=== PATIENT | male | born 1955 | race African-American/Black ===

== ENCOUNTER 2017-04-10 22:21 | Inpatient (IN) | payer MEDICARE, MEDICAID ==
[~2017-04-10] VITALS: Ht 172.7 cm; Wt 74.8 kg
[2017-04-10] MEDS ORDERED: SODIUM CHLORIDE 0.9% 500 ML IV ONE (23:29)
[2017-04-11 00:03] LABS: BASOPHILS % 0.4 % (0.0-2.0); EOSINOPHILS % 0.2 % (0.0-5.0); HEMATOCRIT. 26.1 % (42.0-52.0); HEMOGLOBIN. 8.8 g/dL (14.0-18.0); LYMPHOCYTES % 8.3 % (20.0-50.0); MEAN CORPUSCULAR HEMOGLOBIN 30.9 pg (28.0-32.0); MEAN CORPUSCULAR VOLUME 91.1 fL (80.0-94.0); MEAN PLATELET VOLUME 7.8 fl (7.4-10.4); MONOCYTES % 14.7 % (2.0-8.0); NEUTROPHILS % 76.4 % (40.0-76.0); PLATELET 121 x1000/uL (130-400); RED BLOOD CELL COUNT 2.86 mill/uL (4.7-6.1); RED CELL DISTRIBUTION WIDTH 16.1 % (11.6-14.6)
[2017-04-11 00:15] LABS: CARBON DIOXIDE 31 mEq/L (21-32); CHLORIDE 101 mEq/L (98-107)
[2017-04-11] MEDS ORDERED: CEFTRIAXONE 1 G PREMIX 50 ML IV ONE (03:00)
[2017-04-11] MEDS ORDERED: AZITHROMYCIN 500 MG in DEXT 5% WATER 250 ML IV ONE (03:00)
[2017-04-11] MEDS ORDERED: ACETAMINOPHEN 325MG TABLET PO PRN (04:30)
[2017-04-11] MEDS ORDERED: DIPHENHYDRAMINE 50MG/ML VIAL IV PRN (04:30)
[2017-04-11] MEDS ORDERED: GUAIFENESIN 200MG/10ML SUGAR FREE UDC PO PRN (04:30)
[2017-04-11] MEDS ORDERED: MAGNESIUM/ALUMINUM HYDROXIDE/SIMETHICONE 30ML UDC PO PRN (04:30)
[2017-04-11] MEDS ORDERED: CLONIDINE 0.1MG TABLET PO PRN (04:30)
[2017-04-11] MEDS ORDERED: ONDANSETRON HCL 4MG/2ML VIAL IV PRN (04:30)
[2017-04-11] MEDS ORDERED: IPRATROPIUM/ALBUTEROL 0.5-3(2.5)MG/3ML NEB INH PRN (04:30)
[2017-04-11] MEDS ORDERED: HYDROCODONE/ACETAMINOPHEN 5/325MG TABLET PO PRN (04:30)
[2017-04-11 05:17] VITALS: BP 125/79
[2017-04-11] MEDS: SODIUM CHLORIDE 0.9% INJ 3ML FLUSH IVF SCH ×3 (06:00→20:53)
[2017-04-11] MEDS ORDERED: OXYC40TA57 PO (06:08)
[2017-04-11] MEDS ORDERED: DICL50TA9 PO (06:08)
[2017-04-11] MEDS ORDERED: GABA-531 PO (06:08)
[2017-04-11] MEDS ORDERED: MINO10TA PO (06:08)
[2017-04-11] MEDS ORDERED: PRED5TAB48 PO (06:08)
[2017-04-11 08:00] VITALS: BP 117/66
[2017-04-11] MEDS: IPRATROPIUM/ALBUTEROL 0.5-3(2.5)MG/3ML NEB HHN SCH ×4 (08:30→21:33)
[2017-04-11] MEDS: GABAPENTIN 100MG CAPSULE PO SCH ×3 (08:53→17:12)
[2017-04-11] MEDS: DICLOFENAC SODIUM 50MG EC TABLET PO SCH ×2 (08:53→17:12)
[2017-04-11] MEDS: PREDNISONE 10MG TABLET PO SCH (08:54)
[2017-04-11 12:00] VITALS: BP 134/71
[2017-04-11] MEDS: DOCUSATE SODIUM SUGAR FREE 100MG/10ML UDC NG SCH (12:00)
[2017-04-11] MEDS: OXYCODONE HCL 20MG TABLET SR 12HR PO SCH ×2 (12:17→20:53)
[2017-04-11 14:21] LABS: HEMATOCRIT. 25.3 % (42.0-52.0); HEMOGLOBIN. 8.5 g/dL (14.0-18.0); MEAN CORPUSCULAR HEMOGLOBIN 31.1 pg (28.0-32.0); MEAN CORPUSCULAR VOLUME 92.3 fL (80.0-94.0); MEAN PLATELET VOLUME 8.3 fl (7.4-10.4); PLATELET 114 x1000/uL (130-400); RED BLOOD CELL COUNT 2.74 mill/uL (4.7-6.1)
[2017-04-11 15:26] LABS: PLATELET ESTIMATE DECREASED
[2017-04-11 16:00] VITALS: BP 127/63
[2017-04-11 20:00] VITALS: BP 102/50
[2017-04-11] MEDS ORDERED: OXYCODONE HCL 40 MG TABLET SR 12HR PO SCH (21:00)
[2017-04-12] VITALS: BP 118/58
[2017-04-12] MEDS: IPRATROPIUM/ALBUTEROL 0.5-3(2.5)MG/3ML NEB HHN SCH ×6 (00:12→21:30)
[2017-04-12 04:00] VITALS: BP 123/65
[2017-04-12] MEDS: SODIUM CHLORIDE 0.9% INJ 3ML FLUSH IVF SCH ×3 (05:31→21:11)
[2017-04-12 08:00] VITALS: BP 126/63
[2017-04-12 08:01] LABS: EOSINOPHILS % 0.8 % (0.0-5.0); HEMATOCRIT. 27.1 % (42.0-52.0); HEMOGLOBIN. 9.1 g/dL (14.0-18.0); MEAN CORPUSCULAR HEMOGLOBIN 31.2 pg (28.0-32.0); MEAN CORPUSCULAR VOLUME 92.4 fL (80.0-94.0); MEAN PLATELET VOLUME 8.6 fl (7.4-10.4); MONOCYTES % 12.6 % (2.0-8.0); NEUTROPHILS % 66.6 % (40.0-76.0); PLATELET 120 x1000/uL (130-400); RED BLOOD CELL COUNT 2.93 mill/uL (4.7-6.1); RED CELL DISTRIBUTION WIDTH 15.9 % (11.6-14.6)
[2017-04-12] MEDS: DOCUSATE SODIUM SUGAR FREE 100MG/10ML UDC NG SCH (08:50)
[2017-04-12] MEDS: GABAPENTIN 100MG CAPSULE PO SCH ×3 (08:50→16:58)
[2017-04-12] MEDS: DICLOFENAC SODIUM 50MG EC TABLET PO SCH ×2 (08:51→16:57)
[2017-04-12] MEDS: PREDNISONE 10MG TABLET PO SCH (08:51)
[2017-04-12] MEDS: OXYCODONE HCL 20MG TABLET SR 12HR PO SCH ×2 (08:52→21:12)
[2017-04-12 12:00] VITALS: BP 107/58
[2017-04-12] MEDS: SEVELAMER CARBONATE 800 MG TABLET PO SCH ×2 (12:54→16:58)
[2017-04-12 16:00] VITALS: BP 136/57
[2017-04-12 20:00] VITALS: BP 125/68
[2017-04-13] VITALS: BP 129/63
[2017-04-13] MEDS: IPRATROPIUM/ALBUTEROL 0.5-3(2.5)MG/3ML NEB HHN SCH ×5 (00:40→16:00)
[2017-04-13 04:00] VITALS: BP 127/68
[2017-04-13 06:19] LABS: BASOPHILS % 0.6 % (0.0-2.0); EOSINOPHILS % 1.6 % (0.0-5.0); HEMATOCRIT. 24.6 % (42.0-52.0); HEMOGLOBIN. 8.4 g/dL (14.0-18.0); LYMPHOCYTES % 21.1 % (20.0-50.0); MEAN CORPUSCULAR HEMOGLOBIN 31.3 pg (28.0-32.0); MEAN CORPUSCULAR VOLUME 91.8 fL (80.0-94.0); MEAN PLATELET VOLUME 8.7 fl (7.4-10.4); MONOCYTES % 13.5 % (2.0-8.0); NEUTROPHILS % 63.2 % (40.0-76.0); PLATELET 128 x1000/uL (130-400); RED BLOOD CELL COUNT 2.68 mill/uL (4.7-6.1); RED CELL DISTRIBUTION WIDTH 15.8 % (11.6-14.6)
[2017-04-13 08:00] VITALS: BP 161/26
[2017-04-13] MEDS: SODIUM CHLORIDE 0.9% INJ 3ML FLUSH IVF SCH ×2 (09:10→14:18)
[2017-04-13] MEDS: DOCUSATE SODIUM SUGAR FREE 100MG/10ML UDC NG SCH (09:11)
[2017-04-13] MEDS: GABAPENTIN 100MG CAPSULE PO SCH ×3 (09:11→18:06)
[2017-04-13] MEDS: DICLOFENAC SODIUM 50MG EC TABLET PO SCH ×2 (09:11→18:05)
[2017-04-13] MEDS: SEVELAMER CARBONATE 800 MG TABLET PO SCH ×3 (09:12→18:05)
[2017-04-13] MEDS: PREDNISONE 10MG TABLET PO SCH (09:12)
[2017-04-13] MEDS: OXYCODONE HCL 20MG TABLET SR 12HR PO SCH (09:12)
[2017-04-13 12:00] VITALS: BP 133/70
[2017-04-13 16:00] VITALS: BP 128/68
[2017-04-13 17:26] VITALS: BP 128/68
== END 2017-04-13 19:05 | disposition home or self-care (01) | DRG 291 ==
LOC: ER 22:41 → 8WST 04-11 02:57 → ENRESERV 04-11 03:28
PROVIDERS: ADMIT Internal Medicine; ATTEND Internal Medicine
PROC: 5A1D60Z (ICD-10-PCS; principal; 2017-04-11)
DX: I13.2 Hypertensive heart and chronic kidney disease with heart failure and with stage 5 chronic kidney disease, or end stage renal disease (principal); J18.9 Pneumonia, unspecified organism; J96.00 Acute respiratory failure, unspecified whether with hypoxia or hypercapnia; Z93.0 Tracheostomy status; E11.22 Type 2 diabetes mellitus with diabetic chronic kidney disease; G83.9 Paralytic syndrome, unspecified; N18.6 End stage renal disease; I50.43 Acute on chronic combined systolic (congestive) and diastolic (congestive) heart failure; R04.2 Hemoptysis; Z94.0 Kidney transplant status; W19.XXXA Unspecified fall, initial encounter; D64.9 Anemia, unspecified; Z96.649 Presence of unspecified artificial hip joint; G89.4 Chronic pain syndrome; M45.9 Ankylosing spondylitis of unspecified sites in spine; Y92.009 Unspecified place in unspecified non-institutional (private) residence as the place of occurrence of the external cause; Z80.0 Family history of malignant neoplasm of digestive organs; Z80.1 Family history of malignant neoplasm of trachea, bronchus and lung; Z99.2 Dependence on renal dialysis; Z88.8 Allergy status to other drugs, medicaments and biological substances
CPT/HCPCS: 36415; 70450; 71010; 80048; 80053; 83605; 84484; 85025; 87040; 93005; 93970; 94640; 94664; 96361; 96365; 96367; 99285; J0456; J0696; J7030; J7040; J7060; J7512; J7620

== ENCOUNTER 2018-10-21 20:08 | Emergency (ER) | payer MEDICARE, MEDICAID ==
[~2018-10-21] VITALS: Ht 172.7 cm; Wt 68.0 kg
[~2018-10-21 20:08] MED LIST: DICL50TA9 PO; GABA-531 PO; MINO10TA PO; OXYC40TA57 PO; PRED5TAB48 PO
[2018-10-21] MEDS ORDERED: ONDANSETRON HCL 4MG/2ML INJ IV ONE (21:45)
[2018-10-21] MEDS ORDERED: MORPHINE SULFATE 10 MG/ML CPJ IV ONE (21:45)
[2018-10-22 00:08] LABS: BASOPHILS % 1.1 % (0.0-2.0); EOSINOPHILS % 0.1 % (0.0-5.0); HEMATOCRIT. 33.6 % (42.0-52.0); HEMOGLOBIN. 10.7 g/dL (14.0-18.0); LYMPHOCYTES % 7.8 % (20.0-50.0); MEAN CORPUSCULAR VOLUME 93.6 fL (80.0-94.0); MEAN PLATELET VOLUME 8.2 fl (7.4-10.4); MONOCYTES % 9.2 % (2.0-8.0); NEUTROPHILS % 81.8 % (40.0-76.0); PLATELET 148 x1000/uL (130-400); RED BLOOD CELL COUNT 3.59 mill/uL (4.7-6.1); RED CELL DISTRIBUTION WIDTH 17.2 % (11.6-14.6)
[2018-10-22 00:12] LABS: CHLORIDE 105 mEq/L (98-107)
[2018-10-22 00:17] LABS: INR 1.2; PROTHROMBIN TIME 12.3 sec (9.1-11.1)
[2018-10-22 00:19] LABS: PHOSPHORUS 5.7 mg/dL (2.5-4.9)
[2018-10-22 01:16] VITALS: BP 138/68
== END 2018-10-22 01:46 | disposition short-term general hospital (02) ==
LOC: ER 20:08
DX: S22.029A Unspecified fracture of second thoracic vertebra, initial encounter for closed fracture (principal); S22.039A Unspecified fracture of third thoracic vertebra, initial encounter for closed fracture; S22.31XA Fracture of one rib, right side, initial encounter for closed fracture; E11.22 Type 2 diabetes mellitus with diabetic chronic kidney disease; I12.0 Hypertensive chronic kidney disease with stage 5 chronic kidney disease or end stage renal disease; N18.6 End stage renal disease; D63.1 Anemia in chronic kidney disease; Z88.4 Allergy status to anesthetic agent; Z99.2 Dependence on renal dialysis; W01.0XXA Fall on same level from slipping, tripping and stumbling without subsequent striking against object, initial encounter; Y93.89 Activity, other specified; Y92.018 Other place in single-family (private) house as the place of occurrence of the external cause
CPT/HCPCS: 36415; 71250; 72125; 72131; 80053; 83735; 84100; 85025; 85610; 85730; 93005; 96374; 96375; 99285; J2270; J2405

== ENCOUNTER 2019-04-02 13:16 | Inpatient (IN) | payer MEDICARE, MEDICAID ==
[~2019-04-02] VITALS: Ht 175.3 cm; Wt 68.0 kg
[2019-04-02 14:33] LABS: HEMATOCRIT. 35.6 % (42.0-52.0); HEMOGLOBIN. 11.1 g/dL (14.0-18.0); MEAN CORPUSCULAR HEMOGLOBIN 29.3 pg (28.0-32.0); MEAN CORPUSCULAR VOLUME 93.6 fL (80.0-94.0); MEAN PLATELET VOLUME 9.2 fl (7.4-10.4); PLATELET 111 x1000/uL (130-400); RED CELL DISTRIBUTION WIDTH 19.1 % (11.6-14.6)
[2019-04-02 14:41] LABS: CHLORIDE 102 mEq/L (98-107)
[2019-04-02 14:46] LABS: INR 1.3; PROTHROMBIN TIME 12.9 sec (9.6-11.0)
[2019-04-02 15:55] LABS: PLATELET ESTIMATE DECREASED
[2019-04-02] MEDS ORDERED: ASPIRIN 81MG TABLET PO NR (16:00)
[2019-04-02] MEDS ORDERED: HYDROCODONE/ACETAMINOPHEN 5/325MG TABLET PO PRN (22:15)
[2019-04-02] MEDS ORDERED: ACETAMINOPHEN 325MG TABLET PO PRN (22:15)
[2019-04-02] MEDS ORDERED: DOCUSATE SODIUM 100MG CAPSULE PO PRN (22:15)
[2019-04-02] MEDS ORDERED: CLONIDINE 0.1MG TABLET PO PRN (22:15)
[2019-04-02] MEDS ORDERED: ONDANSETRON HCL 4MG/2ML INJ IV PRN (22:15)
[2019-04-02] MEDS ORDERED: LORAZEPAM 0.5MG TABLET PO PRN (22:15)
[2019-04-02] MEDS ORDERED: FUROSEMIDE 40MG/4ML VIAL IVP SCH (23:00)
[2019-04-03] VITALS (7 sets, daily range): BP systolic 90–122; BP diastolic 56–86
[2019-04-03] MEDS: FUROSEMIDE 40MG/4ML VIAL IVP SCH ×2 (05:52→18:00)
[2019-04-03] MEDS: GABAPENTIN 100MG CAPSULE PO SCH ×3 (09:03→17:00)
[2019-04-03] MEDS: PREDNISONE 5MG TABLET PO SCH ×2 (10:34→17:00)
[2019-04-03] MEDS: AMIODARONE HCL 200 MG TABLET PO SCH ×2 (10:34→21:42)
[2019-04-03 10:39] LABS: HEMATOCRIT. 33.8 % (42.0-52.0); HEMOGLOBIN. 10.5 g/dL (14.0-18.0); MEAN CORPUSCULAR HEMOGLOBIN 29.1 pg (28.0-32.0); MEAN CORPUSCULAR VOLUME 93.6 fL (80.0-94.0); MEAN PLATELET VOLUME 8.9 fl (7.4-10.4); PLATELET 102 x1000/uL (130-400); RED BLOOD CELL COUNT 3.61 mill/uL (4.7-6.1); RED CELL DISTRIBUTION WIDTH 18.8 % (11.6-14.6)
[2019-04-03 12:10] LABS: PHOSPHORUS 3.5 mg/dL (2.5-4.9)
[2019-04-03 12:15] LABS: CREATINE KINASE MB FRACTION 6.5 ng/mL (0.5-3.6)
[2019-04-03 14:53] LABS: PLATELET ESTIMATE SLIGHTLY DECREASED
[2019-04-03] MEDS: MINOXIDIL 2.5MG TABLET PO SCH (16:04)
[2019-04-03] MEDS ORDERED: HEPARIN SODIUM 1,000 UNIT/1ML VIAL IV NR (17:45)
[2019-04-03] MEDS: DICLOFENAC SODIUM 50 MG DR TABLET PO SCH (21:00)
[2019-04-03] MEDS: METOPROLOL TARTRATE 50MG TABLET PO SCH (21:00)
[2019-04-03] MEDS ORDERED: MINOXIDIL 2.5MG TABLET PO SCH (21:00)
[2019-04-03] MEDS: ATORVASTATIN CALCIUM 40MG TABLET PO SCH (21:41)
[2019-04-03] MEDS: OXYCODONE HCL 40 MG TABLET SR 12HR PO SCH (21:42)
[2019-04-04] VITALS: BP 90/63
[2019-04-04] MEDS: FUROSEMIDE 40MG/4ML VIAL IVP SCH ×2 (06:00→18:00)
[2019-04-04 07:57] LABS: HEMATOCRIT. 34.6 % (42.0-52.0); HEMOGLOBIN. 10.5 g/dL (14.0-18.0); MEAN CORPUSCULAR VOLUME 95.2 fL (80.0-94.0); MEAN PLATELET VOLUME 9.3 fl (7.4-10.4); PLATELET 100 x1000/uL (130-400); RED BLOOD CELL COUNT 3.63 mill/uL (4.7-6.1); RED CELL DISTRIBUTION WIDTH 18.8 % (11.6-14.6)
[2019-04-04 08:00] VITALS: BP 116/84
[2019-04-04 08:10] LABS: PHOSPHORUS 3.3 mg/dL (2.5-4.9)
[2019-04-04] MEDS: DICLOFENAC SODIUM 50 MG DR TABLET PO SCH ×2 (09:00→21:00)
[2019-04-04] MEDS: AMIODARONE HCL 200 MG TABLET PO SCH ×2 (09:40→21:14)
[2019-04-04] MEDS: OXYCODONE HCL 40 MG TABLET SR 12HR PO SCH ×2 (09:40→21:13)
[2019-04-04] MEDS: GABAPENTIN 100MG CAPSULE PO SCH ×3 (09:40→18:01)
[2019-04-04] MEDS: METOPROLOL TARTRATE 50MG TABLET PO SCH ×2 (09:41→21:00)
[2019-04-04] MEDS: PREDNISONE 5MG TABLET PO SCH ×2 (09:41→18:01)
[2019-04-04] MEDS: MINOXIDIL 2.5MG TABLET PO SCH (09:41)
[2019-04-04 12:00] VITALS: BP 94/61
[2019-04-04 12:49] LABS: PLATELET ESTIMATE SLIGHTLY DECREASED
[2019-04-04 16:00] VITALS: BP 93/60
[2019-04-04 20:44] VITALS: BP 92/56
[2019-04-04] MEDS: IPRATROPIUM/ALBUTEROL 0.5-3(2.5)MG/3ML NEB INH PRN (20:55)
[2019-04-04] MEDS: ATORVASTATIN CALCIUM 40MG TABLET PO SCH (21:14)
[2019-04-05 00:32] VITALS: BP 90/60
[2019-04-05 04:00] VITALS: BP 90/60
[2019-04-05] MEDS: FUROSEMIDE 40MG/4ML VIAL IVP SCH ×2 (05:39→18:00)
[2019-04-05 07:17] LABS: HEMATOCRIT. 37.3 % (42.0-52.0); HEMOGLOBIN. 11.3 g/dL (14.0-18.0); MEAN CORPUSCULAR HEMOGLOBIN 29.3 pg (28.0-32.0); MEAN CORPUSCULAR VOLUME 96.7 fL (80.0-94.0); MEAN PLATELET VOLUME 9.2 fl (7.4-10.4); PLATELET 115 x1000/uL (130-400); RED BLOOD CELL COUNT 3.85 mill/uL (4.7-6.1); RED CELL DISTRIBUTION WIDTH 19.2 % (11.6-14.6)
[2019-04-05 08:00] VITALS: BP 105/69
[2019-04-05] MEDS: DICLOFENAC SODIUM 50 MG DR TABLET PO SCH ×2 (09:00→21:00)
[2019-04-05] MEDS: OXYCODONE HCL 40 MG TABLET SR 12HR PO SCH ×2 (09:00→20:49)
[2019-04-05] MEDS: GABAPENTIN 100MG CAPSULE PO SCH ×3 (09:00→17:11)
[2019-04-05] MEDS: PREDNISONE 5MG TABLET PO SCH ×2 (09:23→17:11)
[2019-04-05] MEDS: LISINOPRIL 2.5MG TABLET PO SCH (09:23)
[2019-04-05] MEDS: METOPROLOL TARTRATE 50MG TABLET PO SCH (09:23)
[2019-04-05] MEDS: AMIODARONE HCL 200 MG TABLET PO SCH (09:24)
[2019-04-05 12:00] VITALS: BP 96/56
[2019-04-05 12:40] LABS: PLATELET ESTIMATE DECREASED
[2019-04-05 16:00] VITALS: BP 103/47
[2019-04-05] MEDS: NYSTATIN POWDER 15GM TOP SCH ×2 (17:08→21:00)
[2019-04-05 20:00] VITALS: BP 76/48
[2019-04-05] MEDS: METOPROLOL TARTRATE 25MG TABLET PO SCH (20:49)
[2019-04-05] MEDS: ATORVASTATIN CALCIUM 40MG TABLET PO SCH ×2 (21:00→22:15)
[2019-04-06] VITALS (59 sets, daily range): BP systolic 64–137; BP diastolic 27–91
[2019-04-06 06:18] LABS: BASOPHILS % 0.6 % (0.0-2.0); EOSINOPHILS % 0.1 % (0.0-5.0); HEMATOCRIT. 36.9 % (42.0-52.0); LYMPHOCYTES % 8.6 % (20.0-50.0); MEAN PLATELET VOLUME 9.5 fl (7.4-10.4); MONOCYTES % 9.5 % (2.0-8.0); NEUTROPHILS % 81.2 % (40.0-76.0); PLATELET 113 x1000/uL (130-400); RED BLOOD CELL COUNT 3.81 mill/uL (4.7-6.1)
[2019-04-06] MEDS: GABAPENTIN 100MG CAPSULE PO SCH ×3 (09:00→17:00)
[2019-04-06] MEDS: AMIODARONE HCL 200 MG TABLET PO SCH (09:00)
[2019-04-06] MEDS: LISINOPRIL 2.5MG TABLET PO SCH (09:00)
[2019-04-06] MEDS: PREDNISONE 5MG TABLET PO SCH (09:00)
[2019-04-06] MEDS: DICLOFENAC SODIUM 50 MG DR TABLET PO SCH ×2 (09:00→21:00)
[2019-04-06] MEDS: METOPROLOL TARTRATE 25MG TABLET PO SCH (09:00)
[2019-04-06] MEDS: OXYCODONE HCL 40 MG TABLET SR 12HR PO SCH ×2 (09:00→21:00)
[2019-04-06] MEDS ORDERED: NOREPINEPHRINE 16 MG in DEXT 5% WATER 484 ML IV PRN (11:15)
[2019-04-06] MEDS ORDERED: DOBUTAMINE HCL 500 MG in DEXT 5% WATER 210 ML IV SCH (12:45)
[2019-04-06] MEDS ORDERED: DOBUTAMINE HCL 500 MG in DEXTROSE 5% WATER 250 ML IV PRN (13:00)
[2019-04-06] MEDS: MIDODRINE HCL 5MG TABLET PO SCH ×2 (13:21→17:00)
[2019-04-06] MEDS ORDERED: SODIUM BICARBONATE 4% (2.4MEQ) 5ML VIAL IV ONE (14:06)
[2019-04-06] MEDS ORDERED: LIDOCAINE HCL 1% 20ML VIAL (Pyxis) INJ ONE (14:06)
[2019-04-06] MEDS ORDERED: HEPARIN 100 UNITS/1 ML VIAL IVF PRN (15:15)
[2019-04-06] MEDS: DOBUTAMINE HCL 500 MG in DEXT 5% WATER 210 ML IV SCH (15:32)
[2019-04-06 16:50] LABS: HEPATITIS B SURFACE ANTIGEN NEGATIVE
[2019-04-06 17:20] LABS: HEPATITIS A AB IGM NEGATIVE (NEGATIVE)
[2019-04-06] MEDS: ATORVASTATIN CALCIUM 40MG TABLET PO SCH (21:00)
[2019-04-06] MEDS: NYSTATIN POWDER 15GM TOP SCH (21:00)
[2019-04-07] VITALS (125 sets, daily range): BP systolic 66–143; BP diastolic 28–110
[2019-04-07 03:13] LABS: BG BASE EXCESS -5.1 mmol/L (-2.0-2.0); BG CARBOXYHEMOGLOBIN 1.1 % (0.5-1.5); BG DEOXYHEMOGLOBIN 14.2 % (0.0-5.0); BG FRACTION INSPIRED OXYGEN 70; BG HCO3 ACT 23.2 mmol/L (22.0-26.0); BG METHEMOGLOBIN 0.3 % (0.0-1.5); BG OXYGEN SATURATION 85.6 % (92.0-98.5); BG OXYHEMOGLOBIN 84.4 % (94.0-97.0); BG PCO2 58.9 mmHg (35.0-45.0); BG PH 7.213 (7.350-7.450); BG PO2 56.6 mmHg (75.0-100.0); BG SAMPLE SITE RIGHT RADIAL; BG TOTAL HEMOGLOBIN 11.1 g/dL (12.0-18.0); BG VENT MODE MASK - SIMPLE
[2019-04-07 06:47] LABS: HEMATOCRIT. 32.5 % (42.0-52.0); HEMOGLOBIN. 9.9 g/dL (14.0-18.0); MEAN CORPUSCULAR HEMOGLOBIN 28.7 pg (28.0-32.0); MEAN CORPUSCULAR VOLUME 94.6 fL (80.0-94.0); MEAN PLATELET VOLUME 8.7 fl (7.4-10.4); PLATELET 143 x1000/uL (130-400); RED BLOOD CELL COUNT 3.43 mill/uL (4.7-6.1); RED CELL DISTRIBUTION WIDTH 18.8 % (11.6-14.6)
[2019-04-07] MEDS: OXYCODONE HCL 40 MG TABLET SR 12HR PO SCH ×2 (08:05→20:37)
[2019-04-07] MEDS: DICLOFENAC SODIUM 50 MG DR TABLET PO SCH ×2 (08:05→20:37)
[2019-04-07] MEDS: GABAPENTIN 100MG CAPSULE PO SCH ×3 (08:05→17:00)
[2019-04-07] MEDS: AMIODARONE HCL 200 MG TABLET PO SCH (08:06)
[2019-04-07] MEDS: MIDODRINE HCL 5MG TABLET PO SCH ×3 (08:12→17:00)
[2019-04-07] MEDS: PREDNISONE 5MG TABLET PO SCH (08:12)
[2019-04-07 08:59] LABS: PLATELET ESTIMATE NORMAL
[2019-04-07 11:12] LABS: BG BASE EXCESS -4.7 mmol/L (-2.0-2.0); BG BILEVEL POS AIRWAY PRESSURE 15/5; BG CARBOXYHEMOGLOBIN 0.5 % (0.5-1.5); BG DEOXYHEMOGLOBIN 2.2 % (0.0-5.0); BG FRACTION INSPIRED OXYGEN 60; BG HCO3 ACT 24.9 mmol/L (22.0-26.0); BG METHEMOGLOBIN 0.2 % (0.0-1.5); BG OXYGEN SATURATION 97.8 % (92.0-98.5); BG OXYHEMOGLOBIN 97.1 % (94.0-97.0); BG PCO2 70.4 mmHg (35.0-45.0); BG PH 7.167 (7.350-7.450); BG SAMPLE SITE RIGHT RADIAL; BG TOTAL HEMOGLOBIN 11.7 g/dL (12.0-18.0); BG VENT MODE MASK - BIPAP; BG VENT RATE 18 set
[2019-04-07] MEDS: NOREPINEPHRINE 32 MG in DEXT 5% WATER 468 ML IV PRN (11:12)
[2019-04-07 11:24] LABS: ETHANOL BLOOD < 10 mg/dL
[2019-04-07 11:31] LABS: T4 FREE 1.14 ng/dL (0.76-1.46)
[2019-04-07 11:42] LABS: FOLIC ACID (FOLATE) SERUM >20 ng/mL ng/mL (>5.38)
[2019-04-07 11:53] LABS: VITAMIN B12 SERUM 1017 pg/mL (211-911)
[2019-04-07] MEDS ORDERED: TETRACAINE/BENZOCAINE/BUTAMBEN 20 GM SPRAY MM ONE (12:13)
[2019-04-07] MEDS ORDERED: MIDAZOLAM HCL 100 MG in DEXT 5% WATER 80 ML IV PRN (13:00)
[2019-04-07] MEDS ORDERED: VANCOMYCIN 1,750 MG in DEXT 5% WATER 500 ML IV NR (13:30)
[2019-04-07] MEDS ORDERED: HYDROCODONE/ACETAMINOPHEN 10/325MG TABLET PO PRN (13:45)
[2019-04-07 14:20] LABS: BG BASE EXCESS -3.4 mmol/L (-2.0-2.0); BG CARBOXYHEMOGLOBIN 0.5 % (0.5-1.5); BG DEOXYHEMOGLOBIN 3.1 % (0.0-5.0); BG FRACTION INSPIRED OXYGEN 50; BG HCO3 ACT 21.1 mmol/L (22.0-26.0); BG METHEMOGLOBIN 0.1 % (0.0-1.5); BG OXYGEN SATURATION 96.9 % (92.0-98.5); BG OXYHEMOGLOBIN 96.3 % (94.0-97.0); BG PH 7.386 (7.350-7.450); BG SAMPLE SITE RIGHT RADIAL; BG TIDAL VOLUME(mL) 450 mL; BG TOTAL HEMOGLOBIN 11.5 g/dL (12.0-18.0); BG VENT MODE VENT - A/C; BG VENT RATE 18 set
[2019-04-07] MEDS: PIPERACILLIN/TAZOBACTAM 2.25 G in DEXTROSE 5% WATER 50 ML IV SCH ×2 (17:08→21:19)
[2019-04-07] MEDS: DOBUTAMINE HCL 500 MG in DEXT 5% WATER 210 ML IV SCH (17:08)
[2019-04-07] MEDS: FENTANYL CITRATE/PF 500 MCG in SODIUM CHLORIDE 0.9% 40 ML IV PRN (17:13)
[2019-04-07] MEDS ORDERED: MINO2.5T2 PO (20:20)
[2019-04-07] MEDS ORDERED: AMI2 PO (20:28)
[2019-04-07] MEDS: IPRATROPIUM/ALBUTEROL 0.5-3(2.5)MG/3ML NEB HHN SCH (20:32)
[2019-04-07] MEDS: ATORVASTATIN CALCIUM 40MG TABLET PO SCH (20:37)
[2019-04-07] MEDS: NYSTATIN POWDER 15GM TOP SCH (20:54)
[2019-04-08] VITALS (94 sets, daily range): BP systolic 62–144; BP diastolic 37–98
[2019-04-08] MEDS: IPRATROPIUM/ALBUTEROL 0.5-3(2.5)MG/3ML NEB HHN SCH ×4 (01:41→20:13)
[2019-04-08] MEDS: PIPERACILLIN/TAZOBACTAM 2.25 G in DEXTROSE 5% WATER 50 ML IV SCH ×3 (05:25→21:48)
[2019-04-08] MEDS: FENTANYL CITRATE/PF 500 MCG in SODIUM CHLORIDE 0.9% 40 ML IV PRN ×3 (06:03→22:00)
[2019-04-08 07:35] LABS: HEMATOCRIT. 34.8 % (42.0-52.0); MEAN CORPUSCULAR HEMOGLOBIN 28.8 pg (28.0-32.0); MEAN CORPUSCULAR VOLUME 91.5 fL (80.0-94.0); MEAN PLATELET VOLUME 8.2 fl (7.4-10.4); PLATELET 87 x1000/uL (130-400); RED BLOOD CELL COUNT 3.81 mill/uL (4.7-6.1); RED CELL DISTRIBUTION WIDTH 18.3 % (11.6-14.6)
[2019-04-08 08:58] LABS: BG BASE EXCESS -2.5 mmol/L (-2.0-2.0); BG CARBOXYHEMOGLOBIN 0.8 % (0.5-1.5); BG DEOXYHEMOGLOBIN 1.5 % (0.0-5.0); BG FRACTION INSPIRED OXYGEN 50; BG HCO3 ACT 22.2 mmol/L (22.0-26.0); BG METHEMOGLOBIN 0.3 % (0.0-1.5); BG OXYGEN SATURATION 98.5 % (92.0-98.5); BG OXYHEMOGLOBIN 97.4 % (94.0-97.0); BG PH 7.384 (7.350-7.450); BG PO2 131.7 mmHg (75.0-100.0); BG SAMPLE SITE RIGHT RADIAL; BG TIDAL VOLUME(mL) 450 mL; BG VENT MODE VENT - A/C; BG VENT RATE 18 set
[2019-04-08] MEDS: OXYCODONE HCL 40 MG TABLET SR 12HR PO SCH ×2 (09:00→20:38)
[2019-04-08 09:17] LABS: HIV SCREEN 4G Non Reactive (Non Reactive)
[2019-04-08] MEDS: MIDODRINE HCL 5MG TABLET PO SCH ×3 (09:35→18:53)
[2019-04-08] MEDS: PANTOPRAZOLE SODIUM 40 MG/VIAL IV SCH (09:35)
[2019-04-08] MEDS: NOREPINEPHRINE 32 MG in DEXT 5% WATER 468 ML IV PRN ×2 (10:13→15:55)
[2019-04-08 10:28] LABS: PLATELET ESTIMATE SLIGHTLY DECREASED
[2019-04-08] MEDS: PREDNISONE 5MG TABLET PO SCH (10:37)
[2019-04-08] MEDS: GABAPENTIN 100MG CAPSULE PO SCH ×3 (10:37→18:53)
[2019-04-08] MEDS: AMIODARONE HCL 200 MG TABLET PO SCH (10:37)
[2019-04-08] MEDS: NYSTATIN POWDER 15GM TOP SCH ×2 (10:44→22:33)
[2019-04-08] MEDS: DICLOFENAC SODIUM 50 MG DR TABLET PO SCH ×2 (10:58→20:37)
[2019-04-08] MEDS ORDERED: LIDOCAINE HCL 1% 20ML VIAL (Pyxis) INJ ONE (11:02)
[2019-04-08] MEDS: SEVELAMER CARBONATE 800 MG TABLET PO SCH ×2 (12:09→17:00)
[2019-04-08] MEDS: DOBUTAMINE HCL 500 MG in DEXT 5% WATER 210 ML IV SCH (14:00)
[2019-04-08] MEDS ORDERED: ETOMIDATE 2MG/ML 10ML VIAL IV ONE (20:00)
[2019-04-08] MEDS ORDERED: SUCCINYLCHOLINE CHLORIDE 200MG/10ML IV ONE (20:00)
[2019-04-08] MEDS ORDERED: SODIUM CHLORIDE 0.9% 10ML VIAL ONE (20:00)
[2019-04-08] MEDS: ATORVASTATIN CALCIUM 40MG TABLET PO SCH (20:37)
[2019-04-08] MEDS ORDERED: AMIODARONE HCL 150 MG in DEXT 5% WATER 100 ML IV SCH (21:30)
[2019-04-08] MEDS: AMIODARONE HCL 900 MG in DEXT 5% WATER 482 ML IV PRN (23:01)
[2019-04-09] VITALS (91 sets, daily range): BP systolic 86–139; BP diastolic 55–106
[2019-04-09] MEDS: IPRATROPIUM/ALBUTEROL 0.5-3(2.5)MG/3ML NEB HHN SCH ×2 (02:02→08:38)
[2019-04-09] MEDS: PIPERACILLIN/TAZOBACTAM 2.25 G in DEXTROSE 5% WATER 50 ML IV SCH ×3 (06:16→21:15)
[2019-04-09 06:32] LABS: HEMATOCRIT. 31.3 % (42.0-52.0); HEMOGLOBIN. 10.3 g/dL (14.0-18.0); MEAN CORPUSCULAR HEMOGLOBIN 29.5 pg (28.0-32.0); MEAN PLATELET VOLUME 8.4 fl (7.4-10.4); PLATELET 76 x1000/uL (130-400); RED BLOOD CELL COUNT 3.48 mill/uL (4.7-6.1); RED CELL DISTRIBUTION WIDTH 18.4 % (11.6-14.6)
[2019-04-09 08:38] LABS: PLATELET ESTIMATE DECREASED
[2019-04-09 08:38] LABS: BG BASE EXCESS -5.2 mmol/L (-2.0-2.0); BG CARBOXYHEMOGLOBIN 0.2 % (0.5-1.5); BG DEOXYHEMOGLOBIN 1.4 % (0.0-5.0); BG FRACTION INSPIRED OXYGEN 40; BG HCO3 ACT 17.9 mmol/L (22.0-26.0); BG METHEMOGLOBIN 0.3 % (0.0-1.5); BG OXYGEN SATURATION 98.6 % (92.0-98.5); BG OXYHEMOGLOBIN 98.1 % (94.0-97.0); BG PCO2 26.9 mmHg (35.0-45.0); BG PO2 138.9 mmHg (75.0-100.0); BG SAMPLE SITE RIGHT RADIAL; BG TIDAL VOLUME(mL) 450 mL; BG TOTAL HEMOGLOBIN 10.1 g/dL (12.0-18.0); BG VENT MODE VENT - A/C; BG VENT RATE 18 set
[2019-04-09] MEDS: FENTANYL CITRATE/PF 500 MCG in SODIUM CHLORIDE 0.9% 40 ML IV PRN ×3 (08:50→19:58)
[2019-04-09] MEDS: DICLOFENAC SODIUM 50 MG DR TABLET PO SCH ×2 (09:30→21:16)
[2019-04-09] MEDS: GABAPENTIN 100MG CAPSULE PO SCH ×3 (09:30→18:09)
[2019-04-09] MEDS: PANTOPRAZOLE SODIUM 40 MG/VIAL IV SCH (09:30)
[2019-04-09] MEDS: SEVELAMER CARBONATE 800 MG TABLET PO SCH ×3 (09:30→18:09)
[2019-04-09] MEDS: NYSTATIN POWDER 15GM TOP SCH ×2 (09:31→21:16)
[2019-04-09] MEDS: MIDODRINE HCL 5MG TABLET PO SCH ×3 (09:31→18:09)
[2019-04-09] MEDS: PREDNISONE 5MG TABLET PO SCH (09:31)
[2019-04-09] MEDS ORDERED: HEPARIN SODIUM 1,000 UNIT/1ML VIAL IV NR (10:15)
[2019-04-09] MEDS: NOREPINEPHRINE 32 MG in DEXT 5% WATER 468 ML IV PRN (10:22)
[2019-04-09] MEDS ORDERED: VANCOMYCIN 1 G PREMIX 200 ML IV SCH (14:00)
[2019-04-09] MEDS: DOBUTAMINE HCL 500 MG in DEXT 5% WATER 210 ML IV SCH (14:13)
[2019-04-09] MEDS ORDERED: PIPERACILLIN/TAZOBACTAM 2.25 G in DEXTROSE 5% WATER 50 ML IV SCH (14:45)
[2019-04-09] MEDS: IPRATROPIUM BROMIDE (0.02%) 0.5MG/2.5ML NEB HHN SCH ×2 (15:01→20:58)
[2019-04-09] MEDS: ATORVASTATIN CALCIUM 40MG TABLET PO SCH (21:16)
[2019-04-09] MEDS: AMIODARONE HCL 200 MG TABLET PO SCH (21:16)
[2019-04-09] MEDS: AMIODARONE HCL 900 MG in DEXT 5% WATER 482 ML IV PRN (21:18)
[2019-04-10] VITALS (94 sets, daily range): BP systolic 60–121; BP diastolic 18–86
[2019-04-10] MEDS: FENTANYL CITRATE/PF 500 MCG in SODIUM CHLORIDE 0.9% 40 ML IV PRN ×5 (01:32→23:52)
[2019-04-10] MEDS: IPRATROPIUM BROMIDE (0.02%) 0.5MG/2.5ML NEB HHN SCH ×4 (02:06→20:53)
[2019-04-10] MEDS: PIPERACILLIN/TAZOBACTAM 2.25 G in DEXTROSE 5% WATER 50 ML IV SCH ×4 (02:59→21:34)
[2019-04-10] MEDS: NOREPINEPHRINE 32 MG in DEXT 5% WATER 468 ML IV PRN (05:30)
[2019-04-10] MEDS: SEVELAMER CARBONATE 800 MG TABLET PO SCH ×3 (06:25→16:23)
[2019-04-10 07:38] LABS: BG BASE EXCESS -3.4 mmol/L (-2.0-2.0); BG CARBOXYHEMOGLOBIN 0.7 % (0.5-1.5); BG DEOXYHEMOGLOBIN 2.3 % (0.0-5.0); BG HCO3 ACT 21.5 mmol/L (22.0-26.0); BG METHEMOGLOBIN 0.3 % (0.0-1.5); BG OXYGEN SATURATION 97.7 % (92.0-98.5); BG OXYHEMOGLOBIN 96.7 % (94.0-97.0); BG PCO2 38.3 mmHg (35.0-45.0); BG PH 7.368 (7.350-7.450); BG PO2 107.4 mmHg (75.0-100.0); BG SAMPLE SITE RIGHT RADIAL; BG TIDAL VOLUME(mL) 450 mL; BG TOTAL HEMOGLOBIN 9.3 g/dL (12.0-18.0); BG VENT MODE VENT - A/C; BG VENT RATE 14 set
[2019-04-10] MEDS: PANTOPRAZOLE SODIUM 40 MG/VIAL IV SCH (08:24)
[2019-04-10] MEDS: GABAPENTIN 100MG CAPSULE PO SCH ×3 (08:25→16:23)
[2019-04-10] MEDS: PREDNISONE 5MG TABLET PO SCH (08:25)
[2019-04-10] MEDS: AMIODARONE HCL 200 MG TABLET PO SCH ×2 (08:25→21:34)
[2019-04-10] MEDS: DICLOFENAC SODIUM 50 MG DR TABLET PO SCH ×2 (08:25→21:34)
[2019-04-10] MEDS: MIDODRINE HCL 5MG TABLET PO SCH ×3 (08:25→16:23)
[2019-04-10] MEDS: NYSTATIN POWDER 15GM TOP SCH ×2 (08:25→21:35)
[2019-04-10] MEDS ORDERED: LIDOCAINE HCL/PF 1% 2ML VIAL ONE (09:37)
[2019-04-10] MEDS: ATORVASTATIN CALCIUM 20MG TABLET PO SCH (21:34)
[2019-04-10] MEDS: DOBUTAMINE HCL 500 MG in DEXT 5% WATER 210 ML IV SCH (23:15)
[2019-04-11] VITALS (95 sets, daily range): BP systolic 88–127; BP diastolic 44–94
[2019-04-11] MEDS: IPRATROPIUM BROMIDE (0.02%) 0.5MG/2.5ML NEB HHN SCH ×4 (02:03→20:23)
[2019-04-11] MEDS: PIPERACILLIN/TAZOBACTAM 2.25 G in DEXTROSE 5% WATER 50 ML IV SCH ×3 (03:13→15:27)
[2019-04-11] MEDS: AMIODARONE HCL 900 MG in DEXT 5% WATER 482 ML IV PRN (04:18)
[2019-04-11] MEDS: SEVELAMER CARBONATE 800 MG TABLET PO SCH ×3 (06:37→17:34)
[2019-04-11] MEDS: FENTANYL CITRATE/PF 500 MCG in SODIUM CHLORIDE 0.9% 40 ML IV PRN ×3 (07:44→22:38)
[2019-04-11 09:10] LABS: HEMATOCRIT. 31.7 % (42.0-52.0); HEMOGLOBIN. 10.1 g/dL (14.0-18.0); MEAN CORPUSCULAR HEMOGLOBIN 28.4 pg (28.0-32.0); MEAN CORPUSCULAR VOLUME 89.2 fL (80.0-94.0); MEAN PLATELET VOLUME 9.3 fl (7.4-10.4); PLATELET 57 x1000/uL (130-400); RED BLOOD CELL COUNT 3.56 mill/uL (4.7-6.1); RED CELL DISTRIBUTION WIDTH 18.6 % (11.6-14.6)
[2019-04-11] MEDS: PANTOPRAZOLE SODIUM 40 MG/VIAL IV SCH (10:58)
[2019-04-11] MEDS: MIDODRINE HCL 5MG TABLET PO SCH ×3 (10:59→17:34)
[2019-04-11] MEDS: NYSTATIN POWDER 15GM TOP SCH ×2 (10:59→21:36)
[2019-04-11] MEDS: PREDNISONE 5MG TABLET PO SCH (10:59)
[2019-04-11] MEDS: GABAPENTIN 100MG CAPSULE PO SCH ×3 (10:59→17:34)
[2019-04-11] MEDS: DICLOFENAC SODIUM 50 MG DR TABLET PO SCH ×2 (10:59→21:35)
[2019-04-11] MEDS: AMIODARONE HCL 200 MG TABLET PO SCH ×2 (10:59→21:35)
[2019-04-11] MEDS: NOREPINEPHRINE 32 MG in DEXT 5% WATER 468 ML IV PRN (11:00)
[2019-04-11 11:24] LABS: BG BASE EXCESS -1.6 mmol/L (-2.0-2.0); BG CARBOXYHEMOGLOBIN 0.5 % (0.5-1.5); BG DEOXYHEMOGLOBIN 3.1 % (0.0-5.0); BG FRACTION INSPIRED OXYGEN 30; BG HCO3 ACT 22.8 mmol/L (22.0-26.0); BG METHEMOGLOBIN 0.1 % (0.0-1.5); BG OXYGEN SATURATION 96.9 % (92.0-98.5); BG OXYHEMOGLOBIN 96.3 % (94.0-97.0); BG PCO2 37.3 mmHg (35.0-45.0); BG PH 7.405 (7.350-7.450); BG PO2 90.5 mmHg (75.0-100.0); BG SAMPLE SITE RIGHT FEMORAL; BG TIDAL VOLUME(mL) 450 mL; BG VENT MODE VENT - A/C; BG VENT RATE 14 set
[2019-04-11 13:37] LABS: PLATELET ESTIMATE MARKEDLY DECREASED
[2019-04-11] MEDS: DOBUTAMINE HCL 500 MG in DEXT 5% WATER 210 ML IV SCH (14:00)
[2019-04-11] MEDS: CEFEPIME 2,000 MG in DEXT 5% WATER 100 ML IV SCH (17:43)
[2019-04-11] MEDS ORDERED: VANCOMYCIN 1 G PREMIX 200 ML IV NR (18:00)
[2019-04-11] MEDS: ATORVASTATIN CALCIUM 20MG TABLET PO SCH (21:35)
[2019-04-12] VITALS (95 sets, daily range): BP systolic 71–137; BP diastolic 35–94
[2019-04-12] MEDS: IPRATROPIUM BROMIDE (0.02%) 0.5MG/2.5ML NEB HHN SCH ×5 (03:04→21:00)
[2019-04-12] MEDS: FENTANYL CITRATE/PF 500 MCG in SODIUM CHLORIDE 0.9% 40 ML IV PRN ×3 (05:20→17:32)
[2019-04-12 05:53] LABS: HEMATOCRIT. 31.2 % (42.0-52.0); HEMOGLOBIN. 9.7 g/dL (14.0-18.0); MEAN CORPUSCULAR HEMOGLOBIN 28.3 pg (28.0-32.0); MEAN CORPUSCULAR VOLUME 90.7 fL (80.0-94.0); MEAN PLATELET VOLUME 10.1 fl (7.4-10.4); PLATELET 57 x1000/uL (130-400); RED BLOOD CELL COUNT 3.44 mill/uL (4.7-6.1); RED CELL DISTRIBUTION WIDTH 18.5 % (11.6-14.6)
[2019-04-12] MEDS: SEVELAMER CARBONATE 800 MG TABLET PO SCH ×3 (06:44→17:40)
[2019-04-12] MEDS: CEFEPIME 2,000 MG in DEXT 5% WATER 100 ML IV SCH ×2 (06:44→17:41)
[2019-04-12] MEDS: PANTOPRAZOLE SODIUM 40 MG/VIAL IV SCH (09:27)
[2019-04-12] MEDS: PREDNISONE 5MG TABLET PO SCH (09:27)
[2019-04-12] MEDS: DICLOFENAC SODIUM 50 MG DR TABLET PO SCH ×2 (09:27→21:15)
[2019-04-12] MEDS: GABAPENTIN 100MG CAPSULE PO SCH ×3 (09:27→17:40)
[2019-04-12] MEDS: AMIODARONE HCL 200 MG TABLET PO SCH ×2 (09:27→21:15)
[2019-04-12] MEDS: NYSTATIN POWDER 15GM TOP SCH ×2 (09:28→21:15)
[2019-04-12] MEDS: MIDODRINE HCL 5MG TABLET PO SCH ×3 (09:28→17:40)
[2019-04-12 09:41] LABS: BG BASE EXCESS -4.2 mmol/L (-2.0-2.0); BG CARBOXYHEMOGLOBIN 0.9 % (0.5-1.5); BG DEOXYHEMOGLOBIN 5.4 % (0.0-5.0); BG FRACTION INSPIRED OXYGEN 30; BG HCO3 ACT 21.8 mmol/L (22.0-26.0); BG METHEMOGLOBIN 0.3 % (0.0-1.5); BG OXYGEN SATURATION 94.5 % (92.0-98.5); BG OXYHEMOGLOBIN 93.4 % (94.0-97.0); BG PH 7.313 (7.350-7.450); BG PO2 78.9 mmHg (75.0-100.0); BG SAMPLE SITE RIGHT RADIAL; BG TIDAL VOLUME(mL) 450 mL; BG TOTAL HEMOGLOBIN 10.6 g/dL (12.0-18.0); BG VENT MODE VENT - A/C; BG VENT RATE 14 set
[2019-04-12] MEDS: NOREPINEPHRINE 32 MG in DEXT 5% WATER 468 ML IV PRN (11:39)
[2019-04-12 12:07] LABS: PLATELET ESTIMATE DECREASED
[2019-04-12] MEDS: DOBUTAMINE HCL 500 MG in DEXT 5% WATER 210 ML IV SCH (13:08)
[2019-04-12] MEDS: IPRATROPIUM/ALBUTEROL 0.5-3(2.5)MG/3ML NEB INH PRN (14:17)
[2019-04-12] MEDS: ATORVASTATIN CALCIUM 20MG TABLET PO SCH (21:15)
[2019-04-13] VITALS (97 sets, daily range): BP systolic 69–146; BP diastolic 40–115
[2019-04-13] MEDS: FENTANYL CITRATE/PF 500 MCG in SODIUM CHLORIDE 0.9% 40 ML IV PRN ×4 (01:34→21:01)
[2019-04-13] MEDS: IPRATROPIUM BROMIDE (0.02%) 0.5MG/2.5ML NEB HHN SCH ×4 (02:03→20:33)
[2019-04-13] MEDS: SEVELAMER CARBONATE 800 MG TABLET PO SCH ×3 (05:54→17:28)
[2019-04-13] MEDS: CEFEPIME 2,000 MG in DEXT 5% WATER 100 ML IV SCH ×2 (05:54→17:27)
[2019-04-13 06:05] LABS: HEMOGLOBIN. 9.2 g/dL (14.0-18.0); MEAN CORPUSCULAR HEMOGLOBIN 28.3 pg (28.0-32.0); MEAN CORPUSCULAR VOLUME 89.1 fL (80.0-94.0); MEAN PLATELET VOLUME 10.4 fl (7.4-10.4); PLATELET 52 x1000/uL (130-400); RED BLOOD CELL COUNT 3.25 mill/uL (4.7-6.1)
[2019-04-13] MEDS: PANTOPRAZOLE SODIUM 40 MG/VIAL IV SCH (08:38)
[2019-04-13] MEDS: AMIODARONE HCL 200 MG TABLET PO SCH ×2 (08:38→21:00)
[2019-04-13] MEDS: DICLOFENAC SODIUM 50 MG DR TABLET PO SCH ×2 (08:39→21:00)
[2019-04-13] MEDS: GABAPENTIN 100MG CAPSULE PO SCH ×3 (08:39→17:28)
[2019-04-13] MEDS: MIDODRINE HCL 5MG TABLET PO SCH ×3 (08:39→17:28)
[2019-04-13] MEDS: PREDNISONE 5MG TABLET PO SCH (08:39)
[2019-04-13] MEDS: NYSTATIN POWDER 15GM TOP SCH ×2 (08:40→21:00)
[2019-04-13 10:00] LABS: BG BASE EXCESS -3.3 mmol/L (-2.0-2.0); BG CARBOXYHEMOGLOBIN 0.4 % (0.5-1.5); BG DEOXYHEMOGLOBIN 2.2 % (0.0-5.0); BG FRACTION INSPIRED OXYGEN 30; BG HCO3 ACT 20.8 mmol/L (22.0-26.0); BG METHEMOGLOBIN 0.2 % (0.0-1.5); BG OXYGEN SATURATION 97.8 % (92.0-98.5); BG OXYHEMOGLOBIN 97.2 % (94.0-97.0); BG PCO2 33.9 mmHg (35.0-45.0); BG PH 7.406 (7.350-7.450); BG PO2 107.9 mmHg (75.0-100.0); BG SAMPLE SITE RIGHT RADIAL; BG TIDAL VOLUME(mL) 450 mL; BG TOTAL HEMOGLOBIN 10.3 g/dL (12.0-18.0); BG VENT MODE VENT - A/C; BG VENT RATE 14 set
[2019-04-13] MEDS: DOBUTAMINE HCL 500 MG in DEXT 5% WATER 210 ML IV SCH (14:00)
[2019-04-13 14:19] LABS: PLATELET ESTIMATE MARKEDLY DECREASED
[2019-04-13] MEDS: METOCLOPRAMIDE HCL 10MG/2ML VIAL IV SCH ×2 (17:28→23:42)
[2019-04-13] MEDS: ATORVASTATIN CALCIUM 20MG TABLET PO SCH (21:00)
[2019-04-13] MEDS: MIDAZOLAM HCL 100 MG in DEXT 5% WATER 80 ML IV PRN (21:01)
[2019-04-13] MEDS: NOREPINEPHRINE 32 MG in DEXT 5% WATER 468 ML IV PRN (23:42)
[2019-04-14] VITALS (91 sets, daily range): BP systolic 75–145; BP diastolic 48–93
[2019-04-14] MEDS: IPRATROPIUM BROMIDE (0.02%) 0.5MG/2.5ML NEB HHN SCH ×4 (02:04→20:58)
[2019-04-14] MEDS ORDERED: FENTANYL CITRATE/PF 1,000 MCG in SODIUM CHLORIDE 0.9% 80 ML IV PRN (04:00)
[2019-04-14] MEDS: FENTANYL CITRATE/PF 1,000 MCG in SODIUM CHLORIDE 0.9% 80 ML IV PRN ×2 (04:04→15:57)
[2019-04-14 05:42] LABS: HEMATOCRIT. 29.6 % (42.0-52.0); HEMOGLOBIN. 9.2 g/dL (14.0-18.0); MEAN CORPUSCULAR HEMOGLOBIN 27.9 pg (28.0-32.0); MEAN CORPUSCULAR VOLUME 89.5 fL (80.0-94.0); MEAN PLATELET VOLUME 10.6 fl (7.4-10.4); PLATELET 67 x1000/uL (130-400); RED BLOOD CELL COUNT 3.31 mill/uL (4.7-6.1); RED CELL DISTRIBUTION WIDTH 18.5 % (11.6-14.6)
[2019-04-14] MEDS: SEVELAMER CARBONATE 800 MG TABLET PO SCH ×3 (06:16→17:35)
[2019-04-14] MEDS: CEFEPIME 2,000 MG in DEXT 5% WATER 100 ML IV SCH (06:16)
[2019-04-14] MEDS: METOCLOPRAMIDE HCL 10MG/2ML VIAL IV SCH ×3 (06:17→17:35)
[2019-04-14 07:42] LABS: BG BASE EXCESS -5.9 mmol/L (-2.0-2.0); BG CARBOXYHEMOGLOBIN 0.2 % (0.5-1.5); BG DEOXYHEMOGLOBIN 16.9 % (0.0-5.0); BG FRACTION INSPIRED OXYGEN 30; BG HCO3 ACT 19.6 mmol/L (22.0-26.0); BG METHEMOGLOBIN 0.3 % (0.0-1.5); BG OXYHEMOGLOBIN 82.6 % (94.0-97.0); BG PCO2 38.4 mmHg (35.0-45.0); BG PH 7.326 (7.350-7.450); BG PO2 50.3 mmHg (75.0-100.0); BG SAMPLE SITE RIGHT RADIAL; BG TIDAL VOLUME(mL) 450 mL; BG TOTAL HEMOGLOBIN 9.7 g/dL (12.0-18.0); BG VENT MODE VENT - A/C; BG VENT RATE 14 set
[2019-04-14 08:01] LABS: PLATELET ESTIMATE DECREASED
[2019-04-14] MEDS: PANTOPRAZOLE SODIUM 40 MG/VIAL IV SCH (08:17)
[2019-04-14] MEDS: DICLOFENAC SODIUM 50 MG DR TABLET PO SCH ×2 (08:17→22:04)
[2019-04-14] MEDS: MIDODRINE HCL 5MG TABLET PO SCH ×3 (08:17→17:36)
[2019-04-14] MEDS: PREDNISONE 5MG TABLET PO SCH (08:17)
[2019-04-14] MEDS: AMIODARONE HCL 200 MG TABLET PO SCH ×2 (08:17→22:04)
[2019-04-14] MEDS: GABAPENTIN 100MG CAPSULE PO SCH ×3 (08:17→17:36)
[2019-04-14] MEDS: NYSTATIN POWDER 15GM TOP SCH ×2 (08:18→22:05)
[2019-04-14] MEDS ORDERED: HEPARIN SODIUM 1,000 UNIT/1ML VIAL IV NR (10:40)
[2019-04-14] MEDS: DOBUTAMINE HCL 500 MG in DEXT 5% WATER 210 ML IV SCH (13:06)
[2019-04-14] MEDS: ATORVASTATIN CALCIUM 20MG TABLET PO SCH (22:04)
[2019-04-15] VITALS (96 sets, daily range): BP systolic 78–146; BP diastolic 31–122
[2019-04-15] MEDS: METOCLOPRAMIDE HCL 10MG/2ML VIAL IV SCH ×4 (00:46→18:46)
[2019-04-15] MEDS: IPRATROPIUM BROMIDE (0.02%) 0.5MG/2.5ML NEB HHN SCH ×4 (02:35→20:21)
[2019-04-15] MEDS: SEVELAMER CARBONATE 800 MG TABLET PO SCH ×3 (06:35→16:19)
[2019-04-15] MEDS: FENTANYL CITRATE/PF 1,000 MCG in SODIUM CHLORIDE 0.9% 80 ML IV PRN (07:14)
[2019-04-15] MEDS: PANTOPRAZOLE SODIUM 40 MG/VIAL IV SCH (09:03)
[2019-04-15] MEDS: MIDAZOLAM HCL 100 MG in DEXT 5% WATER 80 ML IV PRN (09:03)
[2019-04-15] MEDS: NOREPINEPHRINE 32 MG in DEXT 5% WATER 468 ML IV PRN (09:03)
[2019-04-15 09:04] LABS: BG BASE EXCESS -4.2 mmol/L (-2.0-2.0); BG CARBOXYHEMOGLOBIN 0.4 % (0.5-1.5); BG DEOXYHEMOGLOBIN 5.6 % (0.0-5.0); BG FRACTION INSPIRED OXYGEN 50; BG HCO3 ACT 21.2 mmol/L (22.0-26.0); BG METHEMOGLOBIN 0.1 % (0.0-1.5); BG OXYGEN SATURATION 94.4 % (92.0-98.5); BG OXYHEMOGLOBIN 93.9 % (94.0-97.0); BG PCO2 39.8 mmHg (35.0-45.0); BG PH 7.344 (7.350-7.450); BG PO2 72.6 mmHg (75.0-100.0); BG SAMPLE SITE RIGHT RADIAL; BG TIDAL VOLUME(mL) 400 mL; BG TOTAL HEMOGLOBIN 10.5 g/dL (12.0-18.0); BG VENT MODE VENT - A/C; BG VENT RATE 14 set
[2019-04-15] MEDS: AMIODARONE HCL 200 MG TABLET PO SCH ×2 (09:04→21:52)
[2019-04-15] MEDS: NYSTATIN POWDER 15GM TOP SCH ×2 (09:04→21:54)
[2019-04-15] MEDS: MIDODRINE HCL 5MG TABLET PO SCH ×3 (09:04→16:19)
[2019-04-15] MEDS: PREDNISONE 5MG TABLET PO SCH (09:04)
[2019-04-15] MEDS: DICLOFENAC SODIUM 50 MG DR TABLET PO SCH ×2 (09:04→21:52)
[2019-04-15] MEDS: GABAPENTIN 100MG CAPSULE PO SCH ×3 (09:04→16:19)
[2019-04-15] MEDS: CEFEPIME 2,000 MG in DEXT 5% WATER 100 ML IV SCH (09:06)
[2019-04-15 10:47] LABS: HEMATOCRIT. 34.2 % (42.0-52.0); HEMOGLOBIN. 10.5 g/dL (14.0-18.0); MEAN CORPUSCULAR HEMOGLOBIN 27.7 pg (28.0-32.0); MEAN CORPUSCULAR VOLUME 90.2 fL (80.0-94.0); MEAN PLATELET VOLUME 10.8 fl (7.4-10.4); RED BLOOD CELL COUNT 3.79 mill/uL (4.7-6.1); RED CELL DISTRIBUTION WIDTH 19.1 % (11.6-14.6)
[2019-04-15 11:07] LABS: PLATELET 45 x1000/uL (130-400)
[2019-04-15 12:08] LABS: PLATELET ESTIMATE MARKEDLY DECREASED
[2019-04-15 16:21] LABS: INR 1.6; PARTIAL THROMBOPLASTIN TIME 48.1 sec (23.4-31.0); PROTHROMBIN TIME 16.4 sec (9.6-11.0)
[2019-04-15] MEDS: ATORVASTATIN CALCIUM 20MG TABLET PO SCH (21:52)
[2019-04-16] VITALS (99 sets, daily range): BP systolic 63–117; BP diastolic 39–95
[2019-04-16] MEDS: FENTANYL CITRATE/PF 1,000 MCG in SODIUM CHLORIDE 0.9% 80 ML IV PRN (00:24)
[2019-04-16] MEDS: METOCLOPRAMIDE HCL 10MG/2ML VIAL IV SCH ×4 (00:32→17:23)
[2019-04-16] MEDS: IPRATROPIUM BROMIDE (0.02%) 0.5MG/2.5ML NEB HHN SCH ×5 (02:20→23:44)
[2019-04-16 04:54] LABS: HEMATOCRIT. 29.5 % (42.0-52.0); HEMOGLOBIN. 9.3 g/dL (14.0-18.0); MEAN CORPUSCULAR VOLUME 88.8 fL (80.0-94.0); MEAN PLATELET VOLUME 9.5 fl (7.4-10.4); PLATELET 94 x1000/uL (130-400); RED BLOOD CELL COUNT 3.32 mill/uL (4.7-6.1); RED CELL DISTRIBUTION WIDTH 18.6 % (11.6-14.6)
[2019-04-16] MEDS: SEVELAMER CARBONATE 800 MG TABLET PO SCH ×3 (06:46→17:00)
[2019-04-16 07:35] LABS: BG BASE EXCESS -4.6 mmol/L (-2.0-2.0); BG CARBOXYHEMOGLOBIN 0.5 % (0.5-1.5); BG DEOXYHEMOGLOBIN 5.4 % (0.0-5.0); BG FRACTION INSPIRED OXYGEN 50; BG HCO3 ACT 21.9 mmol/L (22.0-26.0); BG METHEMOGLOBIN 0.2 % (0.0-1.5); BG OXYGEN SATURATION 94.6 % (92.0-98.5); BG OXYHEMOGLOBIN 93.9 % (94.0-97.0); BG PCO2 46.9 mmHg (35.0-45.0); BG PH 7.288 (7.350-7.450); BG PO2 77.6 mmHg (75.0-100.0); BG SAMPLE SITE RIGHT RADIAL; BG TIDAL VOLUME(mL) 450 mL; BG TOTAL HEMOGLOBIN 9.7 g/dL (12.0-18.0); BG VENT MODE VENT - A/C; BG VENT RATE 14 set
[2019-04-16] MEDS: MIDAZOLAM HCL 100 MG in DEXT 5% WATER 80 ML IV PRN (08:19)
[2019-04-16] MEDS: NOREPINEPHRINE 32 MG in DEXT 5% WATER 468 ML IV PRN (08:20)
[2019-04-16] MEDS ORDERED: DEXT 5%/0.9% NACL 1,000 ML IV SCH (08:45)
[2019-04-16] MEDS: AMIODARONE HCL 200 MG TABLET PO SCH ×2 (09:00→21:35)
[2019-04-16] MEDS: DICLOFENAC SODIUM 50 MG DR TABLET PO SCH ×2 (09:00→20:46)
[2019-04-16] MEDS: GABAPENTIN 100MG CAPSULE PO SCH ×3 (09:00→17:00)
[2019-04-16] MEDS: PREDNISONE 5MG TABLET PO SCH (09:00)
[2019-04-16 09:45] LABS: PLATELET ESTIMATE DECREASED
[2019-04-16] MEDS: CEFEPIME 2,000 MG in DEXT 5% WATER 100 ML IV SCH (10:21)
[2019-04-16] MEDS: NYSTATIN POWDER 15GM TOP SCH ×2 (10:25→21:50)
[2019-04-16] MEDS: MIDODRINE HCL 5MG TABLET PO SCH ×2 (14:00→21:35)
[2019-04-16] MEDS ORDERED: AMIODARONE HCL 200 MG TABLET PO SCH ×2 (14:10→19:00)
[2019-04-16] MEDS: PANTOPRAZOLE SODIUM 40 MG/VIAL IV SCH (15:55)
[2019-04-16] MEDS ORDERED: AMIODARONE HCL 900 MG in DEXT 5% WATER 482 ML IV PRN (16:30)
[2019-04-16] MEDS ORDERED: MEROPENEM 500 MG in SODIUM CHLORIDE 0.9% 50 ML IV SCH (16:30)
[2019-04-16] MEDS: PHENYLEPHRINE 40 MG in DEXT 5% WATER 246 ML IV PRN (17:24)
[2019-04-16] MEDS ORDERED: VANCOMYCIN 1 G PREMIX 200 ML IV NR (18:00)
[2019-04-16] MEDS: MEROPENEM 1000MG in NORMAL SALINE 100ML IV SCH (19:47)
[2019-04-16] MEDS: ATORVASTATIN CALCIUM 20MG TABLET PO SCH (20:46)
[2019-04-16] MEDS ORDERED: ACETAMINOPHEN 650MG SUPP PR PRN (21:00)
[2019-04-16] MEDS: AMIODARONE HCL 900 MG in DEXT 5% WATER 482 ML IV PRN (21:37)
[2019-04-16] MEDS ORDERED: AMIODARONE HCL 150 MG in DEXT 5% WATER 100 ML IV NR (22:00)
[2019-04-17] VITALS (96 sets, daily range): BP systolic 50–144; BP diastolic 25–89
[2019-04-17] MEDS: PHENYLEPHRINE 40 MG in DEXT 5% WATER 246 ML IV PRN (00:23)
[2019-04-17] MEDS: METOCLOPRAMIDE HCL 10MG/2ML VIAL IV SCH ×5 (00:59→23:45)
[2019-04-17] MEDS: IPRATROPIUM BROMIDE (0.02%) 0.5MG/2.5ML NEB HHN SCH ×4 (04:19→20:07)
[2019-04-17 05:36] LABS: CHLORIDE 101 mEq/L (98-107)
[2019-04-17] MEDS: AMIODARONE HCL 200 MG TABLET PO SCH ×3 (05:39→21:39)
[2019-04-17] MEDS: MIDODRINE HCL 5MG TABLET PO SCH ×3 (05:39→21:40)
[2019-04-17] MEDS: NOREPINEPHRINE 32 MG in DEXT 5% WATER 468 ML IV PRN (06:17)
[2019-04-17] MEDS: SEVELAMER CARBONATE 800 MG TABLET PO SCH ×3 (07:00→16:55)
[2019-04-17 07:45] LABS: INR 2.5; PARTIAL THROMBOPLASTIN TIME 66.1 sec (23.4-31.0)
[2019-04-17 08:16] LABS: BG BASE EXCESS -5.2 mmol/L (-2.0-2.0); BG CARBOXYHEMOGLOBIN 0.3 % (0.5-1.5); BG DEOXYHEMOGLOBIN 10.1 % (0.0-5.0); BG FRACTION INSPIRED OXYGEN 35; BG HCO3 ACT 19.9 mmol/L (22.0-26.0); BG METHEMOGLOBIN 0.5 % (0.0-1.5); BG OXYGEN SATURATION 89.8 % (92.0-98.5); BG OXYHEMOGLOBIN 89.1 % (94.0-97.0); BG PCO2 37.3 mmHg (35.0-45.0); BG PH 7.346 (7.350-7.450); BG PO2 59.6 mmHg (75.0-100.0); BG SAMPLE SITE RIGHT RADIAL; BG TIDAL VOLUME(mL) 450 mL; BG TOTAL HEMOGLOBIN 10.1 g/dL (12.0-18.0); BG VENT MODE VENT - A/C; BG VENT RATE 18 set
[2019-04-17] MEDS: DICLOFENAC SODIUM 50 MG DR TABLET PO SCH ×2 (09:00→21:39)
[2019-04-17] MEDS: ASCORBIC ACID 500 MG TABLET PO SCH (09:00)
[2019-04-17] MEDS: ZINC SULFATE 220 MG ( 50 ) CAPSULE PO SCH (09:00)
[2019-04-17] MEDS: GABAPENTIN 100MG CAPSULE PO SCH ×3 (09:00→16:54)
[2019-04-17] MEDS: PREDNISONE 5MG TABLET PO SCH (09:00)
[2019-04-17] MEDS: PANTOPRAZOLE SODIUM 40 MG/VIAL IV SCH (09:30)
[2019-04-17] MEDS: NYSTATIN POWDER 15GM TOP SCH ×2 (09:31→21:39)
[2019-04-17 10:53] LABS: HEMATOCRIT. 27.3 % (42.0-52.0); HEMOGLOBIN. 8.5 g/dL (14.0-18.0); MEAN CORPUSCULAR HEMOGLOBIN 27.6 pg (28.0-32.0); MEAN CORPUSCULAR VOLUME 88.6 fL (80.0-94.0); PLATELET 87 x1000/uL (130-400); RED BLOOD CELL COUNT 3.08 mill/uL (4.7-6.1)
[2019-04-17] MEDS: IPRATROPIUM/ALBUTEROL 0.5-3(2.5)MG/3ML NEB INH PRN (12:06)
[2019-04-17 12:49] LABS: PLATELET ESTIMATE DECREASED
[2019-04-17] MEDS ORDERED: MORPHINE SULFATE 2 MG/ML CPJ (NOT FOR IM USE) IV PRN (13:00)
[2019-04-17] MEDS: AMIODARONE HCL 900 MG in DEXT 5% WATER 482 ML IV PRN (17:09)
[2019-04-17] MEDS: MEROPENEM 1000MG in NORMAL SALINE 100ML IV SCH (18:17)
[2019-04-17] MEDS: ATORVASTATIN CALCIUM 20MG TABLET PO SCH (21:39)
[2019-04-18] VITALS (92 sets, daily range): BP systolic 41–160; BP diastolic 14–116
[2019-04-18] MEDS: PHENYLEPHRINE 40 MG in DEXT 5% WATER 246 ML IV PRN ×5 (00:58→22:09)
[2019-04-18] MEDS: NOREPINEPHRINE 32 MG in DEXT 5% WATER 468 ML IV PRN ×2 (02:04→18:16)
[2019-04-18] MEDS: IPRATROPIUM BROMIDE (0.02%) 0.5MG/2.5ML NEB HHN SCH ×2 (02:36→20:20)
[2019-04-18 05:53] LABS: HEMATOCRIT. 26.4 % (42.0-52.0); HEMOGLOBIN. 8.4 g/dL (14.0-18.0); MEAN CORPUSCULAR HEMOGLOBIN 27.6 pg (28.0-32.0); MEAN CORPUSCULAR VOLUME 86.6 fL (80.0-94.0); MEAN PLATELET VOLUME 10.1 fl (7.4-10.4); PLATELET 104 x1000/uL (130-400); RED BLOOD CELL COUNT 3.05 mill/uL (4.7-6.1); RED CELL DISTRIBUTION WIDTH 18.7 % (11.6-14.6)
[2019-04-18] MEDS: AMIODARONE HCL 200 MG TABLET PO SCH ×4 (05:56→21:54)
[2019-04-18] MEDS: MIDODRINE HCL 5MG TABLET PO SCH ×3 (05:57→22:54)
[2019-04-18] MEDS: METOCLOPRAMIDE HCL 10MG/2ML VIAL IV SCH ×4 (06:46→23:47)
[2019-04-18] MEDS: SEVELAMER CARBONATE 800 MG TABLET PO SCH ×3 (06:46→16:58)
[2019-04-18 07:46] LABS: BG BASE EXCESS -6.3 mmol/L (-2.0-2.0); BG CARBOXYHEMOGLOBIN 0.7 % (0.5-1.5); BG DEOXYHEMOGLOBIN 6.9 % (0.0-5.0); BG FRACTION INSPIRED OXYGEN 40; BG HCO3 ACT 18.5 mmol/L (22.0-26.0); BG METHEMOGLOBIN 0.6 % (0.0-1.5); BG OXYHEMOGLOBIN 91.8 % (94.0-97.0); BG PCO2 33.9 mmHg (35.0-45.0); BG PH 7.354 (7.350-7.450); BG PO2 68.4 mmHg (75.0-100.0); BG SAMPLE SITE RIGHT RADIAL; BG TIDAL VOLUME(mL) 450 mL; BG TOTAL HEMOGLOBIN 9.4 g/dL (12.0-18.0); BG VENT MODE VENT - A/C; BG VENT RATE 18 set
[2019-04-18] MEDS: IPRATROPIUM/ALBUTEROL 0.5-3(2.5)MG/3ML NEB INH PRN ×3 (08:36→15:50)
[2019-04-18] MEDS: ZINC SULFATE 220 MG ( 50 ) CAPSULE PO SCH (08:57)
[2019-04-18] MEDS: PREDNISONE 5MG TABLET PO SCH (08:57)
[2019-04-18] MEDS: GABAPENTIN 100MG CAPSULE PO SCH ×3 (08:57→16:58)
[2019-04-18] MEDS: ASCORBIC ACID 500 MG TABLET PO SCH (08:57)
[2019-04-18] MEDS: NYSTATIN POWDER 15GM TOP SCH ×2 (08:58→21:00)
[2019-04-18] MEDS ORDERED: HEPARIN SODIUM 1,000 UNIT/1ML VIAL IV NR (10:00)
[2019-04-18 11:45] LABS: PLATELET ESTIMATE SLIGHTLY DECREASED
[2019-04-18 13:11] LABS: BARBITURATE SCREEN Negative ug/mL (Cutoff:0.1); BENZODIAZEPINE SCREEN Negative ng/mL (Cutoff:20); OPIATES SCREEN Negative ng/mL (Cutoff:5); PHENCYCLIDINE SCREEN Negative ng/mL (Cutoff:8)
[2019-04-18] MEDS: DICLOFENAC SODIUM 50 MG DR TABLET PO SCH ×2 (14:43→21:54)
[2019-04-18] MEDS: MEROPENEM 1000MG in NORMAL SALINE 100ML IV SCH (17:01)
[2019-04-18] MEDS: VASOPRESSIN 10 UNIT in SODIUM CHLORIDE 0.9% 99.5 ML IV PRN ×2 (18:29→22:03)
[2019-04-18] MEDS ORDERED: HETASTARCH/NORMAL SALINE 500 ML PLAST..BAG IV ONE (20:30)
[2019-04-18] MEDS ORDERED: HETASTARCH/NORMAL SALINE 250 ML IV ONE (20:30)
[2019-04-18] MEDS ORDERED: EPOETIN ALFA 4000UNITS/ML VIAL SUBCUT SCH (21:00)
[2019-04-18] MEDS: ATORVASTATIN CALCIUM 20MG TABLET PO SCH (21:54)
[2019-04-19] VITALS (39 sets, daily range): BP systolic 64–85; BP diastolic 33–52
[2019-04-19] MEDS: IPRATROPIUM BROMIDE (0.02%) 0.5MG/2.5ML NEB HHN SCH ×2 (01:53→09:13)
[2019-04-19] MEDS: PHENYLEPHRINE 40 MG in DEXT 5% WATER 246 ML IV PRN ×2 (02:13→06:08)
[2019-04-19] MEDS: VASOPRESSIN 10 UNIT in SODIUM CHLORIDE 0.9% 99.5 ML IV PRN ×2 (02:36→06:54)
[2019-04-19] MEDS: AMIODARONE HCL 200 MG TABLET PO SCH (05:14)
[2019-04-19] MEDS: MIDODRINE HCL 5MG TABLET PO SCH (05:14)
[2019-04-19] MEDS: METOCLOPRAMIDE HCL 10MG/2ML VIAL IV SCH (05:14)
[2019-04-19] MEDS: SEVELAMER CARBONATE 800 MG TABLET PO SCH (07:27)
[2019-04-19 07:55] LABS: BG BASE EXCESS -29.7 mmol/L (-2.0-2.0); BG CARBOXYHEMOGLOBIN 0.3 % (0.5-1.5); BG DEOXYHEMOGLOBIN 11.7 % (0.0-5.0); BG FRACTION INSPIRED OXYGEN 50; BG HCO3 ACT 3.6 mmol/L (22.0-26.0); BG METHEMOGLOBIN 0.5 % (0.0-1.5); BG OXYGEN SATURATION 88.2 % (92.0-98.5); BG OXYHEMOGLOBIN 87.5 % (94.0-97.0); BG PCO2 26.3 mmHg (35.0-45.0); BG PH 6.753 (7.350-7.450); BG SAMPLE SITE RIGHT RADIAL; BG TIDAL VOLUME(mL) 450 mL; BG TOTAL HEMOGLOBIN 7.7 g/dL (12.0-18.0); BG VENT MODE VENT - A/C; BG VENT RATE 18 set
[2019-04-19] MEDS ORDERED: SODIUM BICARBONATE 8.4% 1 MEQ/ML 50ML SYR IV NR ×3 (08:30)
[2019-04-19] MEDS: DICLOFENAC SODIUM 50 MG DR TABLET PO SCH (08:48)
[2019-04-19] MEDS: ZINC SULFATE 220 MG ( 50 ) CAPSULE PO SCH (08:49)
[2019-04-19] MEDS: GABAPENTIN 100MG CAPSULE PO SCH (08:49)
[2019-04-19] MEDS: PREDNISONE 5MG TABLET PO SCH (08:49)
[2019-04-19] MEDS: ASCORBIC ACID 500 MG TABLET PO SCH (08:49)
[2019-04-19 09:53] LABS: MEAN CORPUSCULAR VOLUME 97.7 fL (80.0-94.0); MEAN PLATELET VOLUME 9.2 fl (7.4-10.4); RED CELL DISTRIBUTION WIDTH 20.5 % (11.6-14.6)
[2019-04-19] MEDS ORDERED: SODIUM BICARBONATE 150 MEQ in DEXTROSE 5% WATER 1,000 ML IV SCH (10:00)
[2019-04-19 10:03] LABS: HEMATOCRIT. 17.6 % (42.0-52.0)
[2019-04-19 10:04] LABS: PLATELET 48 x1000/uL (130-400)
[2019-04-19 10:44] LABS: PLATELET ESTIMATE MARKEDL
== END 2019-04-19 09:40 | disposition expired | DRG 870 ==
LOC: ER 13:16 → EDBEDREQ 14:02 → 6WST 17:02 → EDBEDREQ 17:09 → ENRESERV 23:36 → 6WST 04-03 01:15 → UNDOADMIN 04-03 01:15 → 7WST 04-05 19:01 → 5EST 04-06 10:45 → MICUSO 04-08 15:14
PROVIDERS: ADMIT Internal Medicine; ATTEND Internal Medicine
PROC: 5A1D70Z Performance of Urinary Filtration, Intermittent, Less than 6 Hours Per Day (ICD-10-PCS; 2019-04-03)
PROC: 5A1D70Z Performance of Urinary Filtration, Intermittent, Less than 6 Hours Per Day (ICD-10-PCS; 2019-04-06)
PROC: 05HY33Z Insertion of Infusion Device into Upper Vein, Percutaneous Approach (ICD-10-PCS; 2019-04-06)
PROC: B54MZZA Ultrasonography of Right Upper Extremity Veins, Guidance (ICD-10-PCS; 2019-04-06)
PROC: 5A09357 Assistance with Respiratory Ventilation, Less than 24 Consecutive Hours, Continuous Positive Airway Pressure (ICD-10-PCS; 2019-04-07)
PROC: 5A1D70Z Performance of Urinary Filtration, Intermittent, Less than 6 Hours Per Day (ICD-10-PCS; 2019-04-07)
PROC: 05HM33Z Insertion of Infusion Device into Right Internal Jugular Vein, Percutaneous Approach (ICD-10-PCS; 2019-04-07)
PROC: B543ZZA Ultrasonography of Right Jugular Veins, Guidance (ICD-10-PCS; 2019-04-07)
PROC: 5A1955Z Respiratory Ventilation, Greater than 96 Consecutive Hours (ICD-10-PCS; principal; 2019-04-08)
PROC: 0BH17EZ Insertion of Endotracheal Airway into Trachea, Via Natural or Artificial Opening (ICD-10-PCS; 2019-04-08)
PROC: 5A1D70Z Performance of Urinary Filtration, Intermittent, Less than 6 Hours Per Day (ICD-10-PCS; 2019-04-09)
PROC: 4A10X4Z Monitoring of Central Nervous Electrical Activity, External Approach (ICD-10-PCS; 2019-04-10)
PROC: 5A1D70Z Performance of Urinary Filtration, Intermittent, Less than 6 Hours Per Day (ICD-10-PCS; 2019-04-11)
PROC: 5A1D70Z Performance of Urinary Filtration, Intermittent, Less than 6 Hours Per Day (ICD-10-PCS; 2019-04-14)
PROC: 30233R1 Transfusion of Nonautologous Platelets into Peripheral Vein, Percutaneous Approach (ICD-10-PCS; 2019-04-15)
PROC: 5A1D70Z Performance of Urinary Filtration, Intermittent, Less than 6 Hours Per Day (ICD-10-PCS; 2019-04-16)
PROC: 5A1D70Z Performance of Urinary Filtration, Intermittent, Less than 6 Hours Per Day (ICD-10-PCS; 2019-04-18)
PROC: 5A12012 Performance of Cardiac Output, Single, Manual (ICD-10-PCS; 2019-04-19)
DX: A41.9 Sepsis, unspecified organism (principal); L89.153 Pressure ulcer of sacral region, stage 3; I50.23 Acute on chronic systolic (congestive) heart failure; N18.6 End stage renal disease; G92 Toxic encephalopathy; J69.0 Pneumonitis due to inhalation of food and vomit; J96.02 Acute respiratory failure with hypercapnia; I13.2 Hypertensive heart and chronic kidney disease with heart failure and with stage 5 chronic kidney disease, or end stage renal disease; G82.20 Paraplegia, unspecified; I42.9 Cardiomyopathy, unspecified; Z94.0 Kidney transplant status; I31.3 Pericardial effusion (noninflammatory); D61.818 Other pancytopenia; I47.1 Supraventricular tachycardia; J98.11 Atelectasis; I24.8 Other forms of acute ischemic heart disease; T86.19 Other complication of kidney transplant; I27.20 Pulmonary hypertension, unspecified; I35.0 Nonrheumatic aortic (valve) stenosis; D63.1 Anemia in chronic kidney disease; I49.01 Ventricular fibrillation; R57.0 Cardiogenic shock; M45.9 Ankylosing spondylitis of unspecified sites in spine; Z96.649 Presence of unspecified artificial hip joint; L97.519 Non-pressure chronic ulcer of other part of right foot with unspecified severity; D46.9 Myelodysplastic syndrome, unspecified; D72.821 Monocytosis (symptomatic); I25.10 Atherosclerotic heart disease of native coronary artery without angina pectoris; J44.9 Chronic obstructive pulmonary disease, unspecified; K74.60 Unspecified cirrhosis of liver; K80.20 Calculus of gallbladder without cholecystitis without obstruction; B18.2 Chronic viral hepatitis C; L89.310 Pressure ulcer of right buttock, unstageable; Y83.8 Other surgical procedures as the cause of abnormal reaction of the patient, or of later complication, without mention of misadventure at the time of the procedure; L89.329 Pressure ulcer of left buttock, unspecified stage; K72.90 Hepatic failure, unspecified without coma; Z78.1 Physical restraint status; Z88.8 Allergy status to other drugs, medicaments and biological substances; Z99.2 Dependence on renal dialysis; Z91.15 Patient's noncompliance with renal dialysis; Z79.899 Other long term (current) drug therapy; Z87.81 Personal history of (healed) traumatic fracture; L97.529 Non-pressure chronic ulcer of other part of left foot with unspecified severity
CPT/HCPCS: 36415; 36600; 70490; 71045; 71250; 73630; 74018; 76700; 76937; 80048; 80061; 80202; 80307; 80320; 82140; 82375; 82550; 82553; 82607; 82728; 82746; 82805; 83036; 83540; 83550; 83605; 83735; 83880; 84100; 84134; 84145; 84439; 84443; 84481; 84484; 85049; 86022; 86705; 86709; 86803; 86850; 86900; 87070; 87340; 87389; 93005; 93306; 93923; 94002; 94003; 94640; 94660; 97162; 99285; C1725; C9113; J0282; J0330; J0692; J0885; J1250; J1642; J1644; J1940; J2185; J2250; J2370; J2543; J2765; J3010; J3370; J3490; J7042; J7050; J7060; J7070; J7512; J7620; P9034; G0480